=== PATIENT | male | born 1980 | race Caucasian/White ===

== ENCOUNTER 2016-06-03 10:24 | Observation (INO) | payer OTHER ==
[~2016-06-03] VITALS: Ht 188 cm; Wt 100.1 kg
[2016-06-03 10:30] VITALS: Ht 188 cm; Wt 100.1 kg
[2016-06-03 11:22] LABS: ADD SCAN DIFF NO
[2016-06-03 11:24] LABS: BASOPHILS % 0.3 % (0.0-2.0); EOSINOPHILS % 0.3 % (0.0-7.0); HEMATOCRIT 42.4 % (42.0-52.0); HEMOGLOBIN 14.6 g/dl (14.0-18.0); LYMPHOCYTES # 1.3 10^3/ul (0.8-2.9); LYMPHOCYTES % 12.4 % (15.0-51.0); MEAN CORPUSCULAR HEMOGLOBIN 30.6 pg (29.0-33.0); MEAN CORPUSCULAR HGB CONC 34.4 g/dl (32.0-37.0); MEAN CORPUSCULAR VOLUME 88.9 fl (82.0-101.0); MONOCYTE # 0.5 10^3/ul (0.3-0.9); MONOCYTES % 4.6 % (0.0-11.0); NEUTROPHIL # 8.6 10^3/ul (1.6-7.5); NEUTROPHILS % 82.1 % (39.0-77.0); PLATELET COUNT 229 10^3/UL (140-415); RED BLOOD COUNT 4.77 10^6/ul (4.70-6.10); RED CELL DISTRIBUTION WIDTH 12.5 % (11.5-14.5); WHITE BLOOD COUNT 10.5 10^3/ul (4.8-10.8)
[2016-06-03 11:34] LABS: ANION GAP 11 (8-16); BLOOD UREA NITROGEN 14 mg/dl (7-20); CALCIUM 9.2 mg/dl (8.4-10.2); CARBON DIOXIDE 25 mmol/L (21-31); CHLORIDE 106 mmol/L (97-110); CREATININE 0.85 mg/dl (0.61-1.24); GLUCOSE 128 mg/dl (70-220); POTASSIUM 4.3 mmol/L (3.5-5.1); SODIUM 138 mmol/L (135-144)
--- NOTE | 2016-06-03 11:48 | RADRPT ---
PROCEDURE: Chest Radiograph. CLINICAL INDICATION: Chest pain TECHNIQUE: Single frontal chest radiograph. COMPARISON: None available FINDINGS: The cardiomediastinal silhouette is within normal limits. No infiltrate or effusion is seen. Th e bones are intact. IMPRESSION: 1. Unremarkable chest radiograph. RPTAT: KK .Suman Batista MD, MD Date Time Electronically viewed and signed by .Suman Batista MD, on 06/03/2016 11:47 .B/
[2016-06-03 11:50] LABS: TROPONIN-I < 0.012 ng/ml (0.00-0.12)
--- NOTE | 2016-06-03 12:16 | ERA ---
ER Documentation Chief Complaint Date/Time DATE: 06/03/16 TIME: 1046 Chief Complaint felt dizzy, weak , no cp, truble breathing said HPI 35-year-old male presents the emergency department complaining of dizziness and shortness of breath. Patient was in his usual state of health until prior to arrival which time he had acute onset of a nonspecific lightheadedness and dizziness. He had no vertigo or headache associated with lightheadedness and dizziness. He had no chest pain but had trouble breathing and felt diaphoretic. This lasted for a couple of minutes and then went away. He had no focal weakness or numbness but did feel a nonspecific tingling in his arms and came to the emergency department for evaluation. Upon arrival, patient is having no chest pain or further shortness of breath. ROS All systems reviewed and are negative except as per history of present illness. Medications Home Meds No Active Prescriptions or Reported Meds Allergies Allergies: Coded Allergies: aspirin (Verified Allergy, Severe, 06/03/16) PMhx/Soc Medical and Surgical Hx: pt denies Medical Hx, pt denies Surgical Hx History of Surgery: No Anesthesia Reaction: No Hx Neurological Disorder: No Hx Respiratory Disorders: No Hx Cardiac Disorders: No Hx Psychiatric Problems: No Hx Miscellaneous Medical Probl: No Hx Alcohol Use: Yes (1 beer occassionally) Hx Substance Use: No Smoking Status: Never smoker FmHx Grandfather had myocardial infarction, father had "chest pains" Physical Exam Vitals Vital Signs Date Time Temp Pulse Resp B/P Pulse Ox O2 Delivery O2 Flow Rate FiO2 06/03/16 10:30 98.1 80 18 169/91 99 Physical Exam GENERAL: The patient is well developed and appropriate for usual state of health in no apparent distress HEENT: Pupils equal, round, and reactive to light. EOMI. There is no scleral icterus. NECK: C-spine is soft and supple, there is no meningismus. There is no cervical lymphadenopathy. LUNGS: Clear to auscultation bilaterally. There are no rales, wheezes or rhonchi. HEART: Regular rate and rhythm, no murmurs, clicks, rubs or gallops. ABDOMEN: Soft, non-tender, non-distended. There are bowel sounds in all four quadrants. No rebound or guarding. EXTREMITIES: There is no peripheral cyanosis or edema. No focal swelling or erythema. NEURO: The patient moves all four extremities with 5/5 strength. Cranial nerves II - XII are intact. Normal gait. Alert and oriented SKIN: There is no apparent rash or petechiae. HEME/LYMPHATIC: There is no evidence of excessive bruising or lymphedema. PSYCHIATRIC: The patient does not appear anxious or depressed. Result Diagram: 06/03/16 1102 06/03/16 1102 Results 24 hrs Laboratory Tests Test 06/03/16 11:02 White Blood Count 10.510^3/ul Red Blood Count 4.7710^6/ul Hemoglobin 14.6g/dl Hematocrit 42.4% Mean Corpuscular Volume 88.9fl Mean Corpuscular Hemoglobin 30.6pg Mean Corpuscular Hemoglobin Concent 34.4g/dl Red Cell Distribution Width 12.5% Platelet Count 07108^3/UL Mean Platelet Volume 10.0fl Neutrophils % 82.1% Lymphocytes % 12.4% Monocytes % 4.6% Eosinophils % 0.3% Basophils % 0.3% Nucleated Red Blood Cells % 0.0/100WBC Neutrophils # 8.610^3/ul Lymphocytes # 1.310^3/ul Monocytes # 0.510^3/ul Eosinophils # 0.010^3/ul Basophils # 0.010^3/ul Nucleated Red Blood Cells # 0.010^3/ul Sodium Level 138mmol/L Potassium Level 4.3mmol/L Chloride Level 106mmol/L Carbon Dioxide Level 25mmol/L Anion Gap 11 Blood Urea Nitrogen 14mg/dl Creatinine 0.85mg/dl Glucose Level 128mg/dl Calcium Level 9.2mg/dl Troponin I < 0.012ng/ml Procedures/MDM Patient was taken to a room, seen and evaluated. Comfort measures were initiated. Diagnostic tests were ordered and reviewed. 3 LEAD RHYTHM STRIP: Normal sinus rhythm without ectopy EK lead EKG reviewed by myself: Normal Sinus Rhythm Normal [place] and intervals Nonspecific ST and T-wave changes throughout the EKG with minimal ST elevations in the inferior and lateral leads Impression: Abnormal, nonspecific EKG RADIOLOGY: reviewed with the radiologist CONSULTATION: hospitalist was notified for admission REEVALUATION: 35-year-old obese male presents to the emergency department with nonspecific symptoms that may be cardiac related. At this time, patient's first troponin is reassuring, but his EKG is abnormal. Given his risk factors and his abnormal EKG, patient will require admission for further observation to formally rule out cardiac ischemia as the cause of his symptoms. At this time in the emergency department, fortunately, patient is remained hemodynamically stable. MEDICAL DECISION MAKING: default value Departure Diagnosis: Primary Impression: Dizziness Condition: [place] CRISTIAN WILCOX Jun 03, 2016 12:16
[2016-06-03 14:15] VITALS: PULSE 71
[2016-06-03] MEDS ORDERED: morphine 2 MG INJ IV PRN (15:00)
[2016-06-03] MEDS ORDERED: ONDANSETRON 4 MG INJ IV PRN (15:00)
[2016-06-03] MEDS ORDERED: NACL 0.9% 3 ML SYG IV SCH (15:00)
[2016-06-03] MEDS ORDERED: DOCUSATE SODIUM 100 MG CAP PO PRN (15:00)
[2016-06-03] MEDS ORDERED: BISACODYL 10 MG SUPP PR PRN (15:00)
[2016-06-03] MEDS ORDERED: HYDROCODONE/APAP (5/325) TAB PO PRN ×2 (15:00)
[2016-06-03] MEDS ORDERED: ACETAMINOPHEN 325 MG TAB PO PRN (15:00)
[2016-06-03] MEDS ORDERED: MAGNESIUM HYDROXIDE 30ML CUP PO PRN (15:00)
[2016-06-03] MEDS ORDERED: ACETAMINOPHEN 650 MG SUPP PR PRN (15:00)
--- NOTE | 2016-06-03 15:34 | HP ---
Date/Time of Note Date/Time of Note DATE: 06/03/16 TIME: 15:27 Assessment/Plan VTE Prophylaxis VTE Prophylaxis Intervention: SCD's Lines/Catheters IV [facility]from [facility] [place] Assessment/Plan Chief Complaint/Hosp Course Impression and plan 1. Suspect near syncope with Dizziness. Etiology unknown. Possibly dehydration. Patient still does report some lightheadedness. He denies any headaches. Follow- up on echocardiogram. Follow-up on CT scan of the head as well as carotid Doppler. 2. Hypertension. Appears stable at present. We'll provide with antihypertensives as needed Admission process time is 40 minutes Discussed plan of care with Dr. Ku Problems: HPI/ROS Admit Date/Time Admit Date/Time Jun 03, 2016 at 12:43 Hx of Present Illness This is a 35-year-old male with no reported past medical history who came to [facility] due to reports of onset dizziness and near- syncope. According to the patient he was in his normal state of health. 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 He did report feeling some diaphoresis and some associated shortness of breath but denied any chest pain. He did report that this did last for some time (exact time unknown) until he went to the hospital. Even currently now during evaluation patient did report some lightheadedness but less dizziness. At the time of his acute onset he reported some weakness. He does report able tablets time. He did state that last night he went to go exercise and did not have enough water and suspects he may be a bit dehydrated. On examination his CBC was done as well as a BMP with no remarkable findings on initial troponin at less than 0.012. Chest x-ray done showed no acute findings as well. He was found to be slightly hypertensive with blood pressure of 169/91 when he initially came in. No respiratory distress seen. Patient does still report some dizziness at this time even with ambulation but denies any spinning. We will evaluate him for the aforementioned issues. ROS 12 point review of systems obtained and entirely negative except that mentioned in history of present illness PMH/Family/Social Past Medical History Medical History: no pertinent history Family History Significant Family History: other (mother: Diabetes, father: Dyslipidemia) Social History Alcohol Use: other (occasional) Smoking Status: Never smoker Drug Use: none Exam/Review of Systems Vital Signs Vitals Vital Signs Date Time Temp Pulse Resp B/P Pulse Ox O2 Delivery O2 Flow Rate FiO2 06/03/16 14:15 71 06/03/16 13:44 18 130/79 98 Room Air 06/03/16 10:30 98.1 Exam Constitutional: alert, oriented Psych: nl mood/affect, no complaints Head: normocephalic Eyes: nl conjunctiva ENMT: nl external ears & nose, nl lips & teeth Neck: non-tender, supple, No jvd Respiratory: clear to auscultation, normal air movement Cardiovascular: nl pulses, regular rate and rhythm Gastrointestinal: non-tender, soft Extremities: normal pulses Neurological: [employer]OR II-XII intact, nl mental status Skin: nl turgor, No rash or lesions Labs Result Diagram: 06/03/16 1102 06/03/16 1102 Medications Medications Current Medications Ondansetron HCl (Zofran Inj) 4 mg Q6H PRN IV NAUSEA AND/OR VOMITING; Start at 15:00 Acetaminophen (Tylenol Tab) 650 mg Q6H PRN PO PAIN LEVEL 1-3 OR FEVER; Start at 15:00 Acetaminophen (Tylenol Supp) 650 mg Q6H PRN OR PAIN LEVEL 1-3 OR FEVER; Start 06/03/16 at 15:00 Acetaminophen/ Hydrocodone Bitart ([place] (5/325)) 1 tab Q6H PRN PO MODERATE PAIN LEVEL 4-6; Start 06/03/16 at 15:00 Acetaminophen/ Hydrocodone Bitart ([place] (5/325)) 2 tab Q6H PRN PO SEVERE PAIN LEVEL 7-10; Start 06/03/16 at 15:00 Morphine Sulfate (morphine) 2 mg Q4H PRN IV SEVERE PAIN LEVEL 7-10; Start 06/03 at 15:00 Docusate Sodium (Colace) 100 mg Q12H PRN PO CONSTIPATION; Start 06/03/16 at 15: 00 Magnesium Hydroxide (Milk Of Mag) 30 ml DAILY PRN PO CONSTIPATION; Start at 15:00 Bisacodyl (Dulcolax Supp) 10 mg DAILY PRN OR CONSTIPATION; Start 06/03/16 at 15 :00 Famotidine (Pepcid) 20 mg Q12 PO ; Start 06/03/16 at 21:00 CHUCHO MASCORRO Jun 03, 2016 15:34
[2016-06-03 16:16] VITALS: PULSE 76
[2016-06-03 16:55] VITALS: BP 147/77; RESP 18
--- NOTE | 2016-06-03 17:31 | RADRPT ---
PROCEDURE: US Carotids. CLINICAL INDICATION: bruit , suspect syncope TECHNIQUE: Multiple sonographic of the carotid bifurcation region and vertebral arteries were obta ined utilizing santoro scale, duplex and color-flow imaging. The images were reviewed on a PACS worksta tion. COMPARISON: No prior studies are available for comparison. FINDINGS: Evaluation of the right carotid bifurcation region reveals no significant calcific atherosclerotic d isease. Evaluation of the left carotid bifurcation region reveals no significant calcific atherosclerotic di sease. There is antegrade flow within the vertebral arteries bilaterally. RIGHT CAROTID MEASUREMENTS: Common Carotid Pwfdzj385.2 (cm/sec) Internal Carotid Artery - .9 (cm/sec) Internal Carotid Artery - mid64.9 (cm/sec) Internal Carotid Artery - shwyci14 (cm/sec) Internal Carotid/Common Carotid0.73 LEFT CAROTID MEASUREMENTS: Common Carotid Fzqqrb467.8 (cm/sec) Internal Carotid Artery - emwxtpbo12.7 (cm/sec) Internal Carotid Artery - mid71.1 (cm/sec) Internal Carotid Artery - zenbph52.4 (cm/sec) Internal Carotid/Common Carotid0.84 RPTAT: AA IMPRESSION: No evidence for hemodynamically significant stenosis in the bilateral internal carotid arteries - va lidated velocity measurements with angiographic measurements, velocity criteria are extrapolated fro m diameter data as defined by the Society of Radiologists in Ultrasound Consensus Conference Radiolo gy 2003; 229;340-346. This study does indirectly reference the measurement of the distal ICA diamet er as the denominator for stenosis measurement. Normal antegrade flow in the vertebral arteries bilaterally. .Ye Hsu MD, Date Time Electronically viewed and signed by .Ye Hsu MD, MD on 06/03/2016 17:31 .S/
[2016-06-03 19:23] LABS: CREATINE KINASE 502 IU/L (23-200)
[2016-06-03 19:34] LABS: CK-MB 0.92 ng/ml (0.0-2.4); TROPONIN-I < 0.012 ng/ml (0.00-0.12)
[2016-06-03 20:31] VITALS: PULSE 81
[2016-06-03 20:43] VITALS: BP 115/80; RESP 18
--- NOTE | 2016-06-03 21:15 | RADRPT ---
PROCEDURE: CT Head without. CLINICAL INDICATION: Possible syncope. TECHNIQUE: The study was performed utilizing a multi-slice, multidetector CT scanner. Direct spira l 1 mm axial sections were obtained through the head without the use of intravenous contrast materia l. 1 or more of the following dose reduction techniques were utilized: Automated exposure control, adjustment of the mA and/or kV according to patient's size, iterative reconstruction technique. Co patricia and sagittal reformations were obtained. The images were reviewed on a PACS workstation. RADIATION DOSE: CTDIvol: 45.0 mGyDLP: 720.2 mGy-cm COMPARISON: No prior studies are available for comparison. FINDINGS: There is no intracranial hemorrhage, extra-axial fluid collection, mass lesion, midline shift or hyd rocephalus. The ventricles, sulci and cisterns are within normal limits. The white matter is unrem arkable. The santoro-white matter differentiation is preserved. The basal cisterns are patent. The m idline structures are intact. The orbits, calvarium and extracranial soft tissues are normal in nato earance. The visualized paranasal sinuses, mastoid air cells and middle ear cavities are normally ae rated. IMPRESSION: 1. No acute intracranial abnormality. No intracranial hemorrhage, extra-axial fluid collection, ma ss lesion or hydrocephalous. RPTAT: HGAS .Ambrose Romero MD, MD Date Time Electronically viewed and signed by .Ambrose Romero MD, MD on 06/03/2016 21:15 .S/
[2016-06-03] MEDS: FAMOTIDINE 20 MG TAB PO SCH (21:31)
[2016-06-04] VITALS (8 sets, daily range): BP systolic 115–117; BP diastolic 59–63; PULSE 61–71; RESP 18–20
[2016-06-04 01:19] LABS: CREATINE KINASE 453 IU/L (23-200)
[2016-06-04 01:43] LABS: CK-MB 0.64 ng/ml (0.0-2.4); TROPONIN-I < 0.012 ng/ml (0.00-0.12)
[2016-06-04 07:28] LABS: ALBUMIN 4.1 g/dl (3.3-4.9); ALBUMIN/GLOBULIN RATIO 1.36; BILIRUBIN,INDIRECT 1.5 mg/dl (0-1.1); BILIRUBIN,TOTAL 1.5 mg/dl (0.2-1.3); CHOL/HDL RATIO 5.1 RATIO; CREATININE 0.86 mg/dl (0.61-1.24); MAGNESIUM 2.1 mg/dl (1.7-2.5); PHOSPHORUS 4.4 mg/dl (2.5-4.9); POTASSIUM 4.2 mmol/L (3.5-5.1); TOTAL PROTEIN 7.1 g/dl (6.1-8.1)
[2016-06-04 07:40] LABS: T3 UPTAKE 32.4 % (23.5-40.5)
[2016-06-04 07:54] LABS: THYROID STIMULATING HORMONE 1.1 MIU/L (0.465-4.680)
[2016-06-04] MEDS: FAMOTIDINE 20 MG TAB PO SCH (09:26)
--- NOTE | 2016-06-04 10:20 | RADRPT ---
Echocardiogram Report Patient Name: MIHAELA FALLON Gender: Male Date: 1980 Study Date: 04-Jun-2016 Ldr Nurse: GRUPO Lakhani [facility] Location: 5555 Ref. Physician: CHUCHO MASCORRO Quality: Adequate Procedures: Transthoracic echocardiogram with complete 2D, M-Mode, and doppler examination. Indications: Syncope. 2D/M Mode Doppler Measurement Value Normal Ranges Measurement Value Normal Ranges LVIDd 2D 6.0 3.5 - 5.6 cm AV Peak John 1.5 m/sec LVIDs 2D 3.8 2.1 - 4.1 cm AV Peak PG 9.0 mmHg FS 2D 36.0 % LVOT Peak John 1.2 m/sec LVPWd 2D 0.9 0.6 - 1.1 cm LVOT Peak PG 6.0 mmHg IVSd 2D 0.9 0.6 - 1.1 cm MV E Peak John 0.9 m/sec IVS/LVPW 2D 1.0 MV A Peak Jhon 0.8 m/sec AoR Diam 2D 2.1 2.0 - 3.7 cm MV E/A 1.2 LA/Ao 2D 2 0 - 1 MV Decel Time 211 msec EDV 2D 216.0 cm3 MV E/A 1.2 ESV 2D 56.6 cm3 TR Peak John 2.3 m/sec LA Dimen 2D 3.3 2.3 - 4.0 cm TR Peak PG 21.0 mmHg RVSP 24.0 mmHg Findings Left Ventricle: Normal left ventricular systolic function. Normal left ventricular cavity size. Normal left ventricular wall thickness. Ejection fraction is visually estimated at 60 %. Tissue Doppler/Mitral Doppler indices are within normal limits. Right Ventricle: Normal right ventricular size. Normal right ventricular systolic function. Left Atrium: The left atrium is normal in size. Right Atrium: The right atrium is normal in size. Mitral Valve: Normal appearance of the mitral valve. Mild mitral valve regurgitation. Aortic Valve: Normal appearance of the aortic valve. No significant aortic stenosis or insufficiency. Tricuspid Valve: Normal appearance and function of the tricuspid valve with trace physiologic regurgitation. Normal right ventricular systolic pressure. Estimated peak PA systolic pressure 24 mmHg. Pulmonic Valve: Pulmonic valve not well visualized. Pericardium: Normal pericardium with no significant pericardial effusion. Aorta: Normal aortic root. IVC: Normal size and normal respiratory collapse consistent with normal right atrial pressure. Conclusions 1.Normal left ventricular systolic function. Normal left ventricular cavity size. Normal left ventricular wall thickness. Ejection fraction is visually estimated at 60 %. Tissue Doppler/Mitral Doppler indices are within normal limits. 2.No significant valvular stenosis or regurgitation seen. 3.Estimated peak PA systolic pressure 24 mmHg based on RA pressure of 3 mmHg. Electronically Signed By: Ariel Harper 04-Jun-2016 10:19:46 -[id number] Patient Name: MIHAELA FALLON Study Date: 04-Jun-2016 [id number]
--- NOTE | 2016-06-04 10:41 | PDOCDIS ---
Discharge Instructions DIAGNOSIS Discharge Diagnosis: 1. dizziness, suspect dehydration 2. rhabdomyolysis CONDITION Patient Condition: Stable FOLLOW UP/APPOINTMENTS Appointments 1. Follow up with your primary care provider in one week CHUCHO MASCORRO Jun 04, 2016 10:41
[2016-06-04] MEDS ORDERED: SOD CHLORIDE 0.9% 500 ML IV ONE (11:00)
--- NOTE | 2016-06-06 18:03 | DS ---
Date/Time of Note Date/Time of Note DATE: 06/06/16 TIME: 17:58 Discharge Summary Admission/Discharge Info Admit Date/Time Jun 03, 2016 at 12:43 Discharge Date/Time Jun 04, 2016 at 14:00 Final Diagnosis 1. Suspect near syncope with Dizziness. 2. Hypertension. 3. Rhabdomyolysis Patient Condition: Stable Hx of Present Illness This is a 35-year-old male with no reported past medical history who came to [facility] due to reports of onset dizziness and near- syncope. According to the patient he was in his normal state of health. 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 He did report feeling some diaphoresis and some associated shortness of breath but denied any chest pain. He did report that this did last for some time (exact time unknown) until he went to the hospital. Even currently now during evaluation patient did report some lightheadedness but less dizziness. At the time of his acute onset he reported some weakness. He does report able tablets time. He did state that last night he went to go exercise and did not have enough water and suspects he may be a bit dehydrated. On examination his CBC was done as well as a BMP with no remarkable findings on initial troponin at less than 0.012. Chest x-ray done showed no acute findings as well. He was found to be slightly hypertensive with blood pressure of 169/91 when he initially came in. No respiratory distress seen. Patient does still report some dizziness at this time even with ambulation but denies any spinning. We will evaluate him for the aforementioned issues. Hospital Course This is a 35-year-old male with no reported past medical history besides suspect hypertension came to [facility] due to reports of onset of dizziness and near syncope. According to the patient he was in his normal state of health. 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 He was going to "black out". He did report feeling some diaphoresis and associated shortness of breath but denied any chest pain. He does not know the exact amount of time that he felt dizzy. He did go to [facility] for further evaluation. Upon examination he did report having some lightheadedness but less dizziness. CBC and BMP will be done were unremarkable but he was noted to be slightly hypertensive with blood pressure of 169/91. Patient was noted to be with elevated creatinine kinase after further labs were drawn. He was provided with IV fluids and he did have good response. Likely etiology of his dizziness is from dehydration as patient did report that he would exercise and not drink water right afterward. He did of note exercise at night prior to his admission and prior to the time he said that he was going to "blackout". As previously mentioned during his course of stay he did improve. The plan of care was discussed with the patient and patient did verbalizes understanding. On the day of discharge patient was in stable condition Discussed plan of care with Dr. Ku Discharge process 40 minute Home Meds No Active Prescriptions or Reported Meds Follow-up Plan CONDITION Patient Condition: Stable FOLLOW UP/APPOINTMENTS Appointments 1. Follow up with your primary care provider in one week CHUCHO MASCORRO Jun 06, 2016 18:03
== END 2016-06-04 14:00 | disposition home or self-care (01) ==
LOC: E/R 10:24 → MS4 12:43
PROVIDERS: ADMIT Family Medicine; ATTEND Family Medicine
DX: R42 Dizziness and giddiness (principal); M62.82 Rhabdomyolysis; R06.02 Shortness of breath; R53.1 Weakness
CPT/HCPCS: 36415; 70450; 71010; 80048; 80053; 80061; 82550; 82553; 83036; 83735; 84100; 84436; 84443; 84479; 84484; 85025; 93005; 93306; 93880; 96360; J7040; Z7500; Z7502; Z7610; G0378